=== PATIENT | male | born 1990 | race Caucasian/White ===

== ENCOUNTER 2017-05-22 22:27 | Emergency (ER) | payer BC ==
[2017-05-22] MEDS: NS 1,000 ML IV ONE (23:05)
[2017-05-22] MEDS: LORazepam 2 MG/ML INJ IVP ONE (23:08)
--- NOTE | 2017-05-22 23:11 | EDPHY ---
General Narrative: CHIEF COMPLAINT: Throat swelling, sweating, insomnia HISTORY OF PRESENT ILLNESS: Patient complains of 2 things. His 1st complaint is sore throat and swelling of the throat. This started 8 days ago. Gradual onset. Constant duration. [id number] at 1st. Worsened over the course of several days. He was seen at urgent care 3 days ago. His 2nd complaint is that after being seen there he was prescribed a Medrol Dosepak, which seem to make his symptoms worse. He took the steroids for 2 days and felt very sweaty, clammy, decreased appetite and vomited after 1 episode. He has also difficulty sleeping. He did not take the medication today and feels that his throat is swelling again. He has some shortness of breath and difficulty breathing from this. He has had no chest pain, no cough. No headache. No neck pain or stiffness. No fever. No rash. No other associated complaints or modifying factors. REVIEW OF SYSTEMS: Ten systems reviewed and are negative unless otherwise noted in the HPI PCP: None SPECIALISTS: None PAST MEDICAL HISTORY: Orthopedic injuries PAST SURGICAL HISTORY: Orthopedic surgery at age 8 SOCIAL HISTORY: Nonsmoker. No illicit substance use. FAMILY HISTORY: Noncontributory EXAMINATION General Appearance: Alert, no distress, diaphoretic Head: normocephalic, atraumatic Eyes: Pupils equal and round, no conjunctival pallor or injection ENT, Mouth: Mucous membranes moist. Uvula is midline. There is posterior erythema. There is no pharyngeal edema. No exudate. No abnormality of the floor of the mouth. No trismus or stridor. No drooling. The airway is widely patent Neck: Normal inspection, supple, non-tender. Trachea midline Respiratory: Lungs are clear to auscultation. No wheezing, rhonchi or crackles Cardiovascular: Tachycardic rate with regular rhythm. No murmur. Pulses intact distally Gastrointestinal: Abdomen is soft and nontender Back: non-tender, no bony abnormalities Neurological: GCS 15. A&O, nonfocal, normal gait Skin: Warm and diaphoretic. No abscess. No petechiae or purpura. Extremities: Nontender, no pedal edema Psychiatric: Mood and affect normal DIFFERENTIAL DIAGNOSES: Including but not limited to strep pharyngitis, viral pharyngitis, mono, adverse drug reaction, anaphylaxis, angioedema, Abiodun's angina MDM: 11:05 p.m. Stroke, dysphagia, swelling of the throat per patient without direct visualization of any edema. The patient is tachycardic and diaphoretic. I have notified Dr. Benton of this. I have ordered CT scan of the neck soft tissue, EKG, IV fluid, Ativan, laboratory studies. He is awake and alert. He is managing his airway with no difficulty. He does not need to be intubated or need any supplemental oxygen. I suspect this is likely due to the steroid, but we will monitor closely. 11:13p.m. Patient has been evaluated by Dr. Benton. Serum creatinine is 0.9. technology auditor has been notified. Proceed with CT scan after EKG. 11:17 p.m. EKG reviewed. Sinus rhythm without ischemia. 11:25 p.m. Patient is being taken to CT scan at this time. He is ambulatory. 11:35 p.m. Patient re-evaluated. He is resting comfortably. Heart rate is 98 beats per minute. He is no longer diaphoretic. He is feeling better. He has no throat complaints at this time. I reviewed the CT scan I do not appreciate any acute findings, without the aid of the radiologist. 11:48 p.m. Case discussed with radiologist Dr. Shelby. 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 No other acute finding. He does not recommend an ultrasound at this time as this is well visualized on this study. Recommends outpatient follow-up. 12:00 a.m. Patient has been informed of these CT findings. He is concerned that the cyst has been placing pressure on his trachea and causing did lightheaded at times. We discussed this at length. He continues to feel better. Vital signs are stable. No longer diaphoretic. TSH has been ordered and is pending. 12:50 a.m. TSH level is normal. I have informed the patient of this. He continues to feel well. I suspect that there may be a component of anxiety to this as well. This is because his vital signs are all perfectly within normal limits telling to the room. At that point becomes mildly tachycardic, with the highest rate I have witnessed of 110 beats per minute while in the room. When I watched the monitor while out of the room, his heart rate is consistently in the 90s. I do feel he is stable for discharge home. He is comfortable with this as well. He will be discharged with short course of Ativan p.r.n. for symptoms. He has instructions to contact ENT in the morning for follow-up regarding the thyroglossal duct cyst. I would like him to discuss a question he has regarding whether he should continue with a fight he has schedule Tuesday. He is comfortable this plan. He is discharged stable condition. EKG interpretation: Dr. Benton Sinus rhythm. No ischemia. - Diagnostics EKG: I reviewed patient's EKG. See [facility] system for interpretation Imaging Results: Imaging Impressions Neck CT 05/22/17 23:02 Impression: 1. 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 Other less likely possibilities include dermoid, lymphatic malformation, or laryngocele. Findings discussed with [place] PAC at 23:46 hour, 05/22/2017. - History Smoking Status: Never smoked - Objective Vital Signs: Initial Vital Signs Temperature (C) 99.7 F 05/22/17 22:33 Heart Rate 130 H 05/22/17 22:33 Respiratory Rate 18 05/22/17 22:33 Blood Pressure 164/112 H 05/22/17 22:33 O2 Sat (%) 96 05/22/17 22:33 Allergies/Adverse Reactions: No Known Allergies Allergy (Unverified 05/22/17 22:36) Home Medications: Medication Instructions Recorded methylPREDNISolone 05/22/17 LORazepam [Ativan] 1 mg PO Q8 PRN #6 tablet 05/23/17 Laboratory Results: Laboratory Results 05/22/17 23:00 05/22/17 05/22/17 05/22/17 Unknown 23:51 23:00 WBC RBC Hgb POC Hgb Hct POC Hct MCV MCH MCHC RDW Plt Count MPV Neut % (Auto) Lymph % (Auto) [place] % (Auto) Eos % (Auto) Baso % (Auto) Nucleat RBC Rel Count Absolute Neuts (auto) Absolute Lymphs (auto) Absolute Monos (auto) Absolute Eos (auto) Absolute Basos (auto) Absolute Nucleated RBC Immature Gran % Immature Gran # POC Sodium POC Potassium POC Chloride POC BUN POC Creatinine POC Glucose TSH 2.910 uIU/mL uIU/mL (0.465-4.680) Monoscreen Group A Strep Screen NEGATIVE (NEGATIVE) Group A Strep DNA Pending 05/22/17 05/22/17 05/22/17 23:00 23:00 22:59 WBC 9.98 10^3/uL H 10^3/uL (3.80-9.50) RBC 5.63 10^6/uL 10^6/uL (4.40-6.38) Hgb 17.8 g/dL H g/dL (13.7-17.5) POC Hgb 17.7 gm/dL H gm/dL (13.7-17.5) Hct 48.9 % % (40.0-51.0) POC Hct 52 % H % (40-51) MCV 86.9 fL fL (81.5-99.8) MCH 31.6 pg pg (27.9-34.1) MCHC 36.4 g/dL g/dL (32.4-36.7) RDW 12.8 % % (11.5-15.2) Plt Count 372 10^3/uL 10^3/uL (150-400) MPV 9.1 fL fL (8.7-11.7) Neut % (Auto) 69.5 % % (39.3-74.2) Lymph % (Auto) 14.1 % L % (15.0-45.0) Amite % (Auto) 14.5 % H % (4.5-13.0) Eos % (Auto) 0.4 % L % (0.6-7.6) Baso % (Auto) 0.9 % % (0.3-1.7) Nucleat RBC Rel Count 0.0 % % (0.0-0.2) Absolute Neuts (auto) 6.93 10^3/uL H 10^3/uL (1.70-6.50) Absolute Lymphs (auto) 1.41 10^3/uL 10^3/uL (1.00-3.00) Absolute Monos (auto) 1.45 10^3/uL H 10^3/uL (0.30-0.80) Absolute Eos (auto) 0.04 10^3/uL 10^3/uL (0.03-0.40) Absolute Basos (auto) 0.09 10^3/uL 10^3/uL (0.02-0.10) Absolute Nucleated RBC 0.00 10^3/uL 10^3/uL (0-0.01) Immature Gran % 0.6 % % (0.0-1.1) Immature Gran # 0.06 10^3/uL 10^3/uL (0.00-0.10) POC Sodium 141 mEq/L mEq/L (134-144) POC Potassium 3.2 mEq/L L mEq/L (3.3-5.0) POC Chloride 102 mEq/L mEq/L (97-110) POC BUN 17 mg/dL mg/dL (7-23) POC Creatinine 0.9 mg/dL mg/dL (0.7-1.3) POC Glucose 99 mg/dL mg/dL (70-100) TSH Monoscreen NEGATIVE (NEGATIVE) Group A Strep Screen Group A Strep DNA Medications Given: Discontinued Medications Sodium Chloride (Ns) 1,000 mls @ 0 mls/hr IV EDNOW ONE; Wide Open PRN Reason: Protocol Stop: 05/22/17 23:04 Last Admin: 05/22/17 23:05 Dose: 1,000 mls Lorazepam (Ativan Injection) 1 mg IVP EDNOW ONE Stop: 05/22/17 23:04 Last Admin: 05/22/17 23:08 Dose: 1 mg Point of Care Test Results: 05/22/17 22:59 POC Sodium 141 POC Potassium 3.2 L POC Chloride 102 POC BUN 17 POC Creatinine 0.9 POC Glucose 99 Departure - Departure Disposition: Home, Routine, Self-Care Clinical Impression: Thyroglossal duct cyst Adverse effect of methylprednisolone Qualifiers: Encounter type: initial encounter Qualified Code(s): T38.0X5A - Adverse effect of glucocorticoids and synthetic analogues, initial encounter Condition: Good Instructions: Pharyngitis (ED), Adverse Drug Reaction (ED), Dysphagia (ED) Additional Instructions: 1. Recommend Benadryl 50 mg in the evening and 25-50 mg every 6 hours while awake if needed 2. Recommend Ativan 0.5 mg every 8 hours as needed 3. Follow up with primary care physician 4. Follow up with ENT physician 5. ED precautions as discussed Referrals: Nathan Waite MD [Medical Doctor] - As per Instructions Stand Alone Forms: Airline Excuse Prescriptions: LORazepam [Ativan] 1 mg PO Q8 PRN #6 tablet PRN Reason: Anxiety
--- NOTE | 2017-05-22 23:15 | CPEKG ---
Heart Rate: 99 RR Interval: 606 P-R Interval: 132 QRSD Interval: 78 QT Interval: 324 QTC Interval: 416 P Leary: 67 QRS Leary: 41 T Wave Leary: 17 EKG Severity - NORMAL ECG - EKG Impression: SINUS RHYTHM Electronically Signed By: Dave Emmanuel 24-May-2017 20:16:13
[2017-05-22] MEDS ORDERED: IOPAMIDOL (ISOVUE-300) 100 ML BTL ONE (23:16)
[2017-05-22 23:28] LABS: % IMMATURE GRANULYOCYTES 0.6 % (0.0-1.1); ABSOLUTE IMMATURE GRANULOCYTES 0.06 10^3/uL (0.00-0.10); ADD DIFF? NO; ADD MORPH? NO; ADD SCAN? NO; ATYPICAL LYMPHOCYTE FLAG 0 (0-99); FRAGMENT RBC FLAG 0 (0-99); HEMATOCRIT 48.9 % (40.0-51.0); HEMOGLOBIN 17.8 g/dL (13.7-17.5); LEFT SHIFT FLG 0 (0-99); LIPEMIA HEMOLYSIS FLAG 90 (0-99); MEAN CELL HEMOGLOBIN 31.6 pg (27.9-34.1); MEAN CELL HEMOGLOBIN CONCENTR. 36.4 g/dL (32.4-36.7); MEAN CELL VOLUME 86.9 fL (81.5-99.8); MEAN PLATELET VOLUME 9.1 fL (8.7-11.7); PLATELET CLUMPS FLAG 0 (0-99); PLATELET COUNT 372 10^3/uL (150-400); RED BLOOD CELL COUNT 5.63 10^6/uL (4.40-6.38); RED CELL DISTRIBUTION WIDTH 12.8 % (11.5-15.2)
[2017-05-23 01:16] VITALS: BP 173/110; PULSE 79; RESP 16; TEMP 98.1; O2SAT 95
== END 2017-05-23 01:15 | disposition home or self-care (01) ==
DX: E07.89 Other specified disorders of thyroid (principal); T38.0X5A Adverse effect of glucocorticoids and synthetic analogues, initial encounter; E86.9 Volume depletion, unspecified
CPT/HCPCS: 82947-QW; 96374; J2060; Q9967